=== PATIENT | female | born 1975 | race Caucasian/White ===

== ENCOUNTER 2024-04-08 16:14 | Emergency (ER) | payer MEDICAID, OTHER ==
[~2024-04-08] VITALS: Ht 165.1 cm; Wt 96.0 kg
--- NOTE | 2024-04-08 16:42 | ED.PDOC ---
History of Present Illness HPI Comments 48F presents to the ER w/ no prior Hx associated to the c/c of back pain. Pt reports that she went to go pull up her pants this morning when she got a sudden sharp pain on her back which has been constant. Pt notes that she did take NORCO and did not help her w/ the pain. PMHx of DM and Lower back pain. Denies chills, fever, N/V/D, SOB, CP or other associated symptoms, modifiers, or recent injuries at this time. 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 Family History Family History: Reviewed,noncontributory to illness, Unknown Social History Smoker: Non-Smoker Alcohol: Denies ETOH Use Drugs: Denies Drug Use Lives In: Home Constitutional: denies: chills, diaphoresis, fatigue, fever, malaise, sweats, weakness, others EENTM: denies: blurred vision, double vision, ear bleeding, ear discharge, ear drainage, ear pain, ear ringing, eye pain, eye redness, hearing loss, mouth pain, mouth swelling, nasal discharge, nose bleeding, nose congestion, nose pain, photophobia, tearing, throat pain, throat swelling, voice changes, others Respiratory: denies: cough, hemoptysis, orthopnea, SOB at rest, shortness of breath, SOB with excertion, stridor, wheezing, others Cardiovascular: denies: chest pain, dizzy spells, diaphoresis, Dyspnea on exertion, edema, irregular heart beat, left arm pain, lightheadedness, palp itations, PND, syncope, others Gastrointestinal: denies: abdomen distended, abdominal pain, blood streaked bowels, constipated, diarrhea, dysphagia, difficulty swallowing, hematemesis, melena, nausea, poor appetite, poor fluid intake, rectal bleeding, rectal pain, vomiting, others Genitourinary: denies: abnormal vagina bleeding, burning, dyspareunia, dysuria, flank pain, frequency, hematuria, incontinence, pain, , vagina discharge, urgency, others Neurological: denies: dizziness, fainting, headache, left sided numbness, left sided weakness, numbness, paresthesia, pre-existing deficit, right sided numbness, right sided weakness, seizure, speech problems, tingling, tremors, weakness, others Musculoskeletal: reports: back pain; denies: gout, joint pain, joint swelling, muscle pain, muscle stiffness, neck pain, others Integumetry: denies: bruises, change in color, change in hair/nails, dryness, laceration, lesions, lumps, rash, wounds, others Allergic/Immunocompromised: denies: Difficulty Healing, Frequent Infections, Hives, Itching, others Hematologic/Lymphatic: denies: anemia, blood clots, easy bleeding, easy bruising, swollen glands, others Endocrine: denies: excessive hunger, excessive sweating, excessive thirst, excessive urination, flushing, intolerance to cold, intolerance to heat, unexplained weight gain, unexplained weight loss, others Psychiatric: denies: anxiety, bipolar disorder, depression, hopeless, panic disorder, schizophrenia, sleepless, suicidal, others All Other Systems: Reviewed and Negative Physical Exam Exam Comments Tenderness diffusely in the lumbar area and is able to bear weight with the cane General Appearance: No Apparent Distress, Normal HEENT: Normal ENT Inspection, Pharynx Normal, TMs Normal Neck: Full Range of Motion, Non-Tender, Normal, Normal Inspection Respiratory: Chest Non-Tender, Lungs Clear, No Accessory Muscle Use, No Respiratory Distress, Normal Breath Sounds Cardiovascular: No Edema, No JVD, No Murmur, No Gallop, Normal Peripheral Pulses, Regular Rate/Rhythm Breast Exam: Deferred Gastrointestinal: No Organomegaly, Non Tender, No Pulsatile Mass, Normal Bowel Sounds, Soft Genitalia: Deferred Pelvic: Deferred Rectal: Deferred Extremities: No calf tenderness, Normal capillary refill, Normal inspection, Normal range of motion, Non-tender, No pedal edema Musculoskeletal : Apperance: Normal Neurologic: Alert, digital camera technician II-XII nml as Tested, No Motor Deficits, Normal Affect, Normal Mood, No Sensory Deficits Cerebellar Function: Normal Reflexes: Normal Skin: Dry, Normal Color, Warm Lymphatic: No Adenopathy Was a procedure done? Was a procedure done?: No Differential Dx Considerations may include: herniated disk, spinal lesions, lumbar spine fracture X-Ray, Labs, Meds, VS Vital Signs Date Time Temp Pulse Resp B/P (MAP) Pulse Ox O2 Delivery O2 Flow Rate FiO2 04/08/24 16:25 98.3 78 16 152/69 (96) 97 Time of 1ST Reevaluation: 17:00 Reevaluation 1ST: Unchanged Patient Education/Counseling: Diagnosis, Treatment, Prognosis Family Education/Counseling: No Family Present Additional Information The following tests were ordered, and results were reviewed by me: Labs, XY, PHA I reviewed and agreed with the following test results read by other providers: X-Ray I discussed treatment and results with medical personnel with pt's sudden onset of pain on bending over, it is likely that she pulled a muscle. the xray is unremarkable, other than a possible artifact. she is stable to follow up with her doctor. i will start her on mortrin and flexeril. she is stable for discharge Departure 1 Departure Time of Disposition: 19:25 Impression: Primary Impression: Lumbar sprain Qualified Codes: S33.5XXA - Sprain of ligaments of lumbar spine, initial encounter Disposition: HOME / SELF CARE / HOMELESS Condition: Good e-Prescriptions Cyclobenzaprine Hcl (CYCLOBENZAPRINE HCL) 7.5 Mg Tab 7.5 MG PO Q8HP PRN for 3 Days, #9 TAB Prov: ONEYDA JENKINS MD 04/08/24 Ibuprofen Micronized (MOTRIN TABLET) 600 Mg Tb 600 MG PO TID PRN, #40 TAB *Black box warning-NSAIDS can increase risk of SC & hypertension, GI irritation, ulceration, bleed, perferation. Do not use post cardiac surgery. Use short duration/lowest effective dose. Prov: ONEYDA JENKINS MD 04/08/24 Discharged With: Self Critical Care Note Critical Care Time?: No Stability Stability form required: No I personally scribed for ONEYDA JENKINS MD ([email or web address]) on 04/08/24 at 16:42. Electronically submitted by Jose Noriega ([email or web address]). ONEYDA JENKINS MD Apr 08, 2024 16:42
--- NOTE | 2024-04-08 17:13 | DVH ---
INDICATION: injury COMPARISON: None TECHNIQUE: 2 views of the lumbar spine were obtained. FINDINGS: The lumbar vertebral alignment is normal. There is a small density along the posterior aspect of the disc at L4-L5 that is only seen on the lat eral view. No acute compression fractures are seen in the lumbar spine. Mild degenerative disc change at L5-S1. The paravertebral soft tissues are grossly unremarkable. Stool is noted in the ascending colon. IMPRESSION: Small density along the posterior aspect of the L4-L5 disc space. This likely represents artifact; h owever, in the setting of trauma an underlying fracture is not excluded. Consider correlation with CT .
[2024-04-08] MEDS ORDERED: CYCL-838 PO (19:28)
[2024-04-08] MEDS ORDERED: IBU600T PO (19:28)
[2024-04-08 19:35] VITALS: BP 157/82; PULSE 66; RESP 18; O2SAT 98
[2024-04-08] MEDS: KETOROLAC TROMETH 60MG/2ML VIAL IM ONE (19:40)
== END 2024-04-08 19:45 | disposition home or self-care (01) ==
LOC: ER 16:14
DX: S33.5XXA Sprain of ligaments of lumbar spine, initial encounter (principal); E11.9 Type 2 diabetes mellitus without complications; X58.XXXA Exposure to other specified factors, initial encounter; Y93.89 Activity, other specified; Y92.89 Other specified places as the place of occurrence of the external cause; Y99.8 Other external cause status
CPT/HCPCS: 72100; 96372; 99283; J1885

== ENCOUNTER 2024-09-24 21:30 | Emergency (ER) | payer MEDICAID, OTHER ==
[~2024-09-24] VITALS: Ht 165.1 cm; Wt 95.3 kg
[~2024-09-24 21:30] MED LIST: CYCL-837 PO; CYCL-838 PO; IBU600T PO
[2024-09-24] MEDS: ALBUTEROL SULF 2.5 MG/0.5ML(0.5%) NEB SOLN NEB ONE (22:42)
[2024-09-24] MEDS: IPRATROPIUM BROM 0.5 MG/2.5ML INH SOL NEB ONE (22:42)
--- NOTE | 2024-09-24 22:44 | ED.PDOC ---
History of Present Illness Chief Complaint: Shortness of Breath Time Seen by MD: 22:25 Mode of Arrival: EMS X-Ray, Labs, Meds, VS Vital Signs Date Time Temp Pulse Resp B/P (MAP) Pulse Ox O2 Delivery O2 Flow Rate FiO2 09/24/24 22:43 20 97 Room Air* 0 21 09/24/24 21:49 100.2 97 20 99/68 (78) 97 100.2 09/24/24 21:34 88 Current Medications Medications (Trade) Dose Ordered Sig/Kassandra Route Start Time Stop Time Status Last Admin Albuterol (Ventolin Medneb) 5 mg ONCE ONCE NEB 09/24/24 22:30 09/24/24 22:31 DC 09/24/24 22:42 Ipratropium [place] (Atrovent Medneb) 0.5 mg ONCE ONCE NEB 09/24/24 22:30 09/24/24 22:31 DC 09/24/24 22:42 Time of 1ST Reevaluation: 22:55 Reevaluation 1ST: Unchanged Patient Education/Counseling: Diagnosis, Treatment Family Education/Counseling: No Family Present Heart Score Heart Score: Heart Score Response (Comments) Value History N/A 0 EKG N/A 0 Age N/A 0 Risk Factors N/A 0 Troponin N/A 0 Total 0 I personally scribed for UZAIR CHAPA DO ([email or web address]) on 09/24/24 at 22:44. Electronically submitted by Santhosh Mclean ([email or web address]). I personally scribed for UZAIR CHAPA DO ([email or web address]) on 09/24/24 at 22:46. Electronically submitted by Santhosh Mclean ([email or web address]). UZAIR CHAPA DO September 24, 2024 22:44
--- NOTE | 2024-09-24 22:56 | ED.PDOC ---
History of Present Illness HPI Comments 49 y/o obese F, with a history of DM, is BIBA for shortness of breath and wheezing. Patient reports on progressively worsening symptoms following initial, unprovoked and gradual onset, that began with wheezing 6x days ago. She states on being evaluated at [facility] facility and being diagnosed with a URI and placed on Azithromycin antibiotic and prescribed an inhaler following breathing treatment; she endorses on having no improvement or relief of symptoms then amidst still having 2x days left of her antibiotic course. Patient remarks on having similar flu-like symptoms without shortness of breath 1x month ago. Patient reports no recent travel, known sick contact, or substance use along with any further relevant history. She denies having any chest pain, cough, congestion, fever, chills, or further associated symptoms. Chief Complaint: Shortness of Breath Time Seen by MD: 22:25 Reviewed Notes: Nurses Notes, Medications, Allergies Information Source: Patient, Emergency Med Personnel Mode of Arrival: EMS Severity: Moderate Timing: Days Duration: Since onset Prehospital treatment: 12 Lead EKG, Accucheck, Dry Cleaner Hand Past Medical History PAST MEDICAL HISTORY: DM Surgical History: Denies all surgeries HEALTH EDUCATOR History: Denies all HEALTH EDUCATOR Hx Social History Smoker: Non-Smoker Alcohol: Denies ETOH Use Drugs: Denies Drug Use Lives In: Home All Other Systems: Reviewed and Negative (Comprehensive systems review obtained and negative except for what is stated in the HPI.) Physical Exam General Appearance: No Apparent Distress, Obese HEENT: Normal ENT Inspection, Pharynx Normal, TMs Normal Neck: Full Range of Motion, Non-Tender, Normal, Normal Inspection Respiratory: Chest Non-Tender, No Accessory Muscle Use, No Respiratory Distress, Wheezing (expiratory), Other (tachypneic) Cardiovascular: No Edema, No JVD, No Murmur, No Gallop, Normal Peripheral Pulses, Regular Rate/Rhythm Breast Exam: Deferred Gastrointestinal: No Organomegaly, Non Tender, No Pulsatile Mass, Normal Bowel Sounds, Soft Genitalia: Deferred Pelvic: Deferred Rectal: Deferred Extremities: No calf tenderness, Normal capillary refill, Normal inspection, Normal range of motion, Non-tender, No pedal edema Musculoskeletal : Apperance: Normal Neurologic: Alert, treatment technician II-XII nml as Tested, No Motor Deficits, Normal Affect, Normal Mood, No Sensory Deficits Cerebellar Function: Normal Reflexes: Normal Skin: Dry, Normal Color, Warm Lymphatic: No Adenopathy Was a procedure done? Was a procedure done?: No EKG EKG : Pulse Rate (adult): 88 [place]: Normal Cardiac Rhythm: NSR Block: None Hypertrophy: None ST: Normal Differential Dx Considerations may include: URI, PNA, viral syndrome, PE, ACS, NE, among others X-Ray, Labs, Meds, VS Vital Signs Date Time Temp Pulse Resp B/P (MAP) Pulse Ox O2 Delivery O2 Flow Rate FiO2 09/24/24 22:57 88 09/24/24 22:43 20 97 Room Air* 0 21 09/24/24 21:49 100.2 97 20 99/68 (78) 97 100.2 09/24/24 21:34 88 Lab Test 09/24/24 22:40 Range/Units White Blood Count 6.4 4.4-10.8 10^3/uL Red Blood Count 4.38 4.0-5.20 10^6/uL Hemoglobin 13.5 12.2-16.2 g/dL Hematocrit 40.0 36.0-46.0 % Mean Corpuscular Volume 91.3 80.0-100.0 fL Mean Corpuscular Hemoglobin 30.9 28.0-32.0 pg Mean Corpuscular Hemoglobin Concent 33.8 32.0-36.0 g/dL Red Cell Distribution Width 13.1 11.8-14.3 % Platelet Count 261 140-450 10^3/uL Mean Platelet Volume 8.3 6.9-10.8 fL Neutrophils (%) (Auto) 61.8 37.0-80.0 % Lymphocytes (%) (Auto) 30.0 10.0-50.0 % Monocytes (%) (Auto) 7.1 0.0-12.0 % Eosinophils (%) (Auto) 0.7 0.0-7.0 % Basophils (%) (Auto) 0.4 0.0-2.0 % Neutrophils # (Auto) 3.9 1.6-8.6 10 ^3/uL Lymphocytes # (Auto) 1.9 0.4-5.4 10 ^3/uL Monocytes # (Auto) 0.5 0-1.3 10 ^3/uL Eosinophils # (Auto) 0 0-0.8 10 ^3/uL Basophils # (Auto) 0 0-0.2 10 ^3/uL Nucleated Red Blood Cells 0.0 % Sodium Level 142 136-145 mmol/L Potassium Level 4.0 3.5-5.1 mmol/L Chloride Level 104 98-107 mmol/L Carbon Dioxide Level 28 20-31 mmol/L Anion Gap 10 5-15 Blood Urea Nitrogen 14 9-23 mg/dL Creatinine 0.79 0.550-1.02 mg/dL Glomerular Filtration Rate Calc 92 >90 mL/min BUN/Creatinine Ratio 17.7 10.0-20.0 Serum Glucose 163 H 74-106 mg/dL Calcium Level 9.7 8.7-10.4 mg/dL Troponin I High Sensitivity < 3 L </=34 ng/L Current Medications Medications (Trade) Dose Ordered Sig/Kassandra Route Start Time Stop Time Status Last Admin Albuterol (Ventolin Medneb) 5 mg ONCE ONCE NEB 09/24/24 22:30 09/24/24 22:31 DC 09/24/24 22:42 Ipratropium [place] (Atrovent Medneb) 0.5 mg ONCE ONCE NEB 09/24/24 22:30 09/24/24 22:31 DC 09/24/24 22:42 [place] [id number] Ph: [phone] DIAGNOSTIC IMAGING Diagnostic Imaging Report : [id number] Signed PATIENT: KIKA DC ACCT: [id number] UNIT: [id number] : 1975 LOC: ER ROOM / BED: / AGE / SEX: 49 / F ADM STATUS: REG ER SERVICE 28 ORDERING PHYSICIAN: IKE COLES MD PROCEDURE(s): CXR2 - CHEST TWO VIEWS ROUTINE REASON: sob ORDER NUMBER(s): [id number], ACCESSION NUMBER(s): [id number] CHEST RADIOGRAPH Indication: sob Technique: Frontal and lateral view of the chest was obtained Comparison: None FINDINGS: Lines and Tubes: None Lungs: Clear Pleura: No effusion. No pneumothorax. Cardiomediastinal contours: Unremarkable Bones: Unremarkable IMPRESSION: No evidence of acute disease. ATED BY: FITO TATUM MD DICTATED DATE/TIME: 09/24/242252 SIGNED BY: FITO TATUM MD SIGNED DATE/TIME: 09/24/242252 CC: Time of 1ST Reevaluation: 22:55 Reevaluation 1ST: Unchanged Patient Education/Counseling: Diagnosis, Treatment Family Education/Counseling: No Family Present Additional Information Previous visits reviewed: N/A The following tests were ordered, and results were reviewed by me: CXR, CBC, BMP, EKG, troponin Additional Information was gathered from interviewing the following independent historians: EMS I reviewed and agreed with the following test results read by other providers: CXR I discussed treatment and results with medical personnel and: patient Departure 1 Departure Time of Disposition: 00:52 (Patient likely with viral syndrome. Using shared decision-making offered patient admission to the hospital the patient decided to go home we will empirically cover patient with steroids and prescribe her a inhaler and have her follow up as an outpatient) Impression: Primary Impression: Acute viral bronchitis Disposition: HOME / SELF CARE / HOMELESS Condition: Stable Additional Instructions: You likely have a virus causing bronchitis. You should use your inhaler as directed. You were prescribed steroids. Please take as directed. For pain you can take the followinam: Ibuprofen 400mg with food Noon: Acetaminophen 1000mg 4pm: Ibuprofen 400mg with food 8pm: Acetaminophen 1000mg You should follow up with your regular doctor within one week to ensure you are doing better. If your symptoms worsen or you have any other concerns then please return to the ER. e-Prescriptions Albuterol Sulfate (Albuterol Sulfate) 0.083 % Neb 1 VIAL NEB Q4HPRN for 5 Days, #50 VIAL Prov: IKE COLES MD 09/25/24 Prednisone (Prednisone) 20 Mg Tab 40 MG PO DAILY for 5 Days, #10 MG Prov: IKE COLES MD 09/25/24 Discharged With: Self Critical Care Note Critical Care Time?: No Stability Stability form required: No Heart Score Heart Score: Heart Score Response (Comments) Value History N/A 0 EKG N/A 0 Age N/A 0 Risk Factors N/A 0 Troponin N/A 0 Total 0 I personally scribed for IKE COLES MD ([email or web address]) on 09/24/24 at 22:56. Electronically submitted by Santhosh Mclean ([email or web address]). I personally scribed for IKE COLES MD ([email or web address]) on 09/24/24 at 22:57. Electronically submitted by Santhosh Mclean ([email or web address]). IKE COLES MD September 24, 2024 22:56
[2024-09-24 23:04] LABS: Basophils # (auto) 0 10 ^3/uL (0-0.2); Basophils % (auto) 0.4 % (0.0-2.0); Eosinophils # (auto) 0 10 ^3/uL (0-0.8); Eosinophils % (auto) 0.7 % (0.0-7.0); Hemoglobin 13.5 g/dL (12.2-16.2); Lymphocytes # (auto) 1.9 10 ^3/uL (0.4-5.4); Mean Corpuscular Hemoglobin 30.9 pg (28.0-32.0); Mean Corpuscular Hgb Conc. 33.8 g/dL (32.0-36.0); Mean Corpuscular Volume 91.3 fL (80.0-100.0); Monocytes # (auto) 0.5 10 ^3/uL (0-1.3); Monocytes % (auto) 7.1 % (0.0-12.0); Neutrophils # (auto) 3.9 10 ^3/uL (1.6-8.6); Neutrophils % (auto) 61.8 % (37.0-80.0); Platelet Count (auto) 261 10^3/uL (140-450); Red Blood Cells 4.38 10^6/uL (4.0-5.20); Red Cell Distribution Width 13.1 % (11.8-14.3); White Blood Cell 6.4 10^3/uL (4.4-10.8)
[2024-09-24 23:15] LABS: Chloride 104 mmol/L (98-107); Sodium 142 mmol/L (136-145)
[2024-09-24 23:16] LABS: Anion Gap 10 (5-15); Calcium 9.7 mg/dL (8.7-10.4); Carbon Dioxide 28 mmol/L (20-31)
[2024-09-24 23:21] LABS: BUN/Creatinine Ratio 17.7 (10.0-20.0); Blood Urea Nitrogen 14 mg/dL (9-23)
[2024-09-24 23:33] LABS: Glucose 163 mg/dL (74-106)
--- NOTE | 2024-09-24 23:40 | ECG ---
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
[2024-09-25] MEDS ORDERED: ALBU0.084 NEB (00:54)
[2024-09-25] MEDS ORDERED: PRED20TA2 PO (00:54)
[2024-09-25] MEDS: ALBUTEROL SULF 2.5 MG/0.5ML(0.5%) NEB SOLN NEB ONE (01:25)
[2024-09-25] MEDS: IPRATROPIUM BROM 0.5 MG/2.5ML INH SOL NEB ONE (01:25)
[2024-09-25] MEDS: methylPREDNISolone SOD SUCC 125 MG/2 ML VL IV ONE (01:28)
[2024-09-25] MEDS: DexAMETHasone SOD PHOS 10MG/1ML VIAL INJ IV ONE (01:30)
[2024-09-25 02:00] VITALS: RESP 16
[2024-09-25 02:35] VITALS: BP 133/63; PULSE 95; RESP 18; O2SAT 98
[2024-09-25 02:47] VITALS: TEMP 100.2
[2024-09-25] MEDS: ACETAMINOPHEN 325 MG TAB PO ONE (02:47)
== END 2024-09-25 02:50 | disposition home or self-care (01) ==
LOC: EDBD 21:30 → ER 21:36 → MERGE 21:36 → ER 09-25 02:50
DX: J20.8 Acute bronchitis due to other specified organisms (principal); B97.89 Other viral agents as the cause of diseases classified elsewhere; E11.9 Type 2 diabetes mellitus without complications
CPT/HCPCS: 36415; 71046; 80048; 84484; 85025; 93005; 94640; 96374; 99285; J1100